=== PATIENT | female | born 1985 | race Caucasian/White ===

== ENCOUNTER 2023-11-19 18:55 | Emergency (ER) | payer BC ==
[~2023-11-19] VITALS: Ht 162.6 cm; Wt 72.6 kg
[2023-11-19] MEDS ORDERED: TRAMADOL HCL50 MG PO (21:05)
== END 2023-11-19 21:10 | disposition home or self-care (01) ==
LOC: ED 18:55
DX: S92.354A Nondisplaced fracture of fifth metatarsal bone, right foot, initial encounter for closed fracture (principal); Z88.5 Allergy status to narcotic agent; W01.0XXA Fall on same level from slipping, tripping and stumbling without subsequent striking against object, initial encounter; Y93.02 Activity, running; Y92.89 Other specified places as the place of occurrence of the external cause; Y99.8 Other external cause status